=== PATIENT | male | born 1945 | race Two or more races ===

== ENCOUNTER 2023-11-01 23:32 | Emergency (ER) | payer MEDICARE, OTHER ==
[~2023-11-01] VITALS: Ht 167.6 cm; Wt 90.9 kg
[2023-11-01 23:58] VITALS: TEMP 97.9
[2023-11-02] MEDS ORDERED: HYDR25TA2 PO (00:06)
[2023-11-02] MEDS ORDERED: SILD25 PO (00:06)
[2023-11-02] MEDS ORDERED: ATEN-72 PO (00:06)
[2023-11-02 01:08] LABS: APPEARANCE,URINE CLEAR (CLEAR); BILIRUBIN,URINE NEGATIVE (NEGATIVE); COLOR,URINE LIGHT YELLOW (YELLOW); GLUCOSE, URINE (UA) 150-200 mg/dL (NEGATIVE); KETONES,URINE NEGATIVE (NEGATIVE); LEUKOCYTE ESTERASE ,URINE NEGATIVE (NEGATIVE); NITRATE,URINE NEGATIVE (NEGATIVE); OCCULT BLOOD,URINE TRACE (NEGATIVE); PH,URINE 5.5 (5.0-8.0); PROTEIN,URINE 30-70 mg/dL (NEGATIVE); UROBILINOGEN,URINE <=1.0 mg/dL (<=1.0)
[2023-11-02 01:09] LABS: BASOPHILS % (AUTO) 0.2 % (0.0-2.0); EOSINOPHILS % (AUTO) 0.1 % (1.0-6.0); HEMATOCRIT 37.9 % (41-53); LYMPHOCYTES # (AUTO) 0.8 K/uL (1.0-4.8); LYMPHOCYTES % (AUTO) 7.5 % (22.0-44.0); MEAN CORPUSCULAR HEMOGLOBIN 26.2 pg (26.0-34.0); MEAN CORPUSCULAR HGB CONC 31.7 G/dL (31.0-37.0); MEAN CORPUSCULAR VOLUME 83 fL (80-100); MONOCYTES # (AUTO) 0.6 K/uL (0.1-1.0); MONOCYTES % (AUTO) 5.7 % (2.0-9.0); NEUTROPHILS # (AUTO) 8.9 K/uL (1.8-7.7); PLATELET COUNT (AUTO) 258 K/uL (150-450); RED BLOOD CELL COUNT(AUTO) 4.58 MIL/uL (4.50-5.90); RED CELL DISTRIBUTION WIDTH 14.3 % (11.5-14.5); WHITE BLOOD COUNT (AUTO) 10.3 K/uL (4.5-11.0)
[2023-11-02 01:20] LABS: ANION GAP 5 mmol/L (8-16); CALCIUM, TOTAL 8.9 mg/dL (8.8-10.5); CARBON DIOXIDE 31 mmol/L (22-29); CHLORIDE 96 mmol/L (98-107); CREATININE 0.96 mg/dL (0.60-1.30); GLOMERULAR FILTR. RATE CALC > 60 mL/min (>60); GLUCOSE,RANDOM 189 mg/dL (70-110); SODIUM SERUM 132 mmol/L (136-145); UREA NITROGEN, BLOOD 12 mg/dL (7-18)
[2023-11-02 01:27] LABS: TROPONIN I-HIGH SENSITIVITY 15 ng/L (<76)
[2023-11-02 01:29] LABS: ALANINE AMINOTRANSFERASE 65 U/L (12-78); ALBUMIN 4.1 g/dL (3.4-5.0); ALKALINE PHOSPHATASE 70 U/L (46-116); ASPARTATE AMINOTRANSFERASE 57 U/L (15-37); BILIRUBIN,TOTAL 0.7 mg/dL (0.1-1.0); CREATINE KINASE, TOTAL ONLY 933 U/L (39-308); LIPASE 33 U/L (16-77); TOTAL PROTEIN, SERUM 8.2 g/dL (6.4-8.2)
[2023-11-02 01:32] LABS: NEUTROPHILS % (AUTO) 86.5 % (40.0-70.0)
[2023-11-02 01:35] LABS: BACTERIA,URINE None Seen /HPF (None Seen); RBC,URINE 0-2 /HPF (0-2); SQUAMOUS EPITHELIAL CELL,UR None Seen /LPF (None Seen); WBC,URINE None Seen /HPF (0-5)
[2023-11-02 01:47] LABS: RBC MORPHOLOGY COMMENT NORMAL RBC MORPH
[2023-11-02] MEDS ORDERED: CEPH-558 PO (08:08)
[2023-11-02] MEDS ORDERED: POLY17PO PO (08:14)
[2023-11-02 09:17] VITALS: BP 122/86; PULSE 84; RESP 16
== END 2023-11-02 09:19 | disposition home or self-care (01) ==
LOC: EMS 23:32
DX: R33.9 Retention of urine, unspecified (principal); I10 Essential (primary) hypertension
CPT/HCPCS: 51702; 71045; 80053; 81001; 82550; 83690; 83880; 84484; 85025; 93005; 99285; 36415-L1; 36415-TC

== ENCOUNTER 2023-11-11 10:44 | Emergency (ER) | payer MEDICARE, OTHER ==
[~2023-11-11] VITALS: Ht 162.6 cm; Wt 88.6 kg
[~2023-11-11 10:44] MED LIST: ATEN-72 PO; CEPH-558 PO; HYDR25TA2 PO; POLY17PO PO; SILD25 PO
[2023-11-11 10:51] VITALS: TEMP 98.4
[2023-11-11] MEDS ORDERED: TAMS0.4C94 PO (11:22)
[2023-11-11 11:35] VITALS: BP 154/99; PULSE 71; RESP 18
== END 2023-11-11 11:43 | disposition home or self-care (01) ==
LOC: EMS 11:07
DX: T83.091A Other mechanical complication of indwelling urethral catheter, initial encounter (principal); I10 Essential (primary) hypertension
CPT/HCPCS: 99283; Z7502